=== PATIENT | male | born 2000 | race Caucasian/White ===

== ENCOUNTER 2023-09-23 13:35 | Emergency (ER) | payer SELFPAY ==
[~2023-09-23] VITALS: Ht 177.8 cm; Wt 72.6 kg
[2023-09-23 13:35] VITALS: BP 127/59; PULSE 115; RESP 18; TEMP 98.2; O2SAT 95
[2023-09-23 14:27] LABS: +ADD MANUAL DIFF(NO CHRG) NO; BASOPHIL % 0.4 % (0.0-0.2); EOSINOPHIL # 0.6 10^3/uL (0.0-0.2); EOSINOPHIL % 5.8 % (0.0-5.0); HEMATOCRIT(ML) 45.5 % (37.0-53.0); HEMOGLOBIN 15.7 g/dL (13.9-16.3); LYMPHOCYTES % 10.5 % (24.0-44.0); MEAN CORP HGB 30.5 pg (26-34); MEAN CORP HGB CONCENTRATION 34.5 g/dL (33-36.5); MEAN CORP VOLUME 88.3 fL (78-100); MONOCYTES # 0.7 10^3/uL (0.3-0.8); MONOCYTES % 6.6 % (5.0-12.0); NEUTROPHILS % 76.4 % (41.0-85.0); PLATELET COUNT 241 10^3/uL (150-400); RED BLOOD CELL 5.15 10^6/uL (4.50-5.90); RED CELL DISTRIBUTION WIDTH 12.6 % (11.5-14.5); WHITE BLOOD CELL 10.4 10^3/uL (4.5-11.0)
[2023-09-23 14:47] LABS: ANION GAP 13.1; CARBON DIOXIDE 25.1 mmol/L (20.0-32); CREATININE SERUM 1.12 mg/dL (0.59-1.40); GLUCOSE 93 mg/dL (74-106); POTASSIUM 3.2 mmol/L (3.6-5.2); SODIUM 141 mmol/L (132-145)
[2023-09-23 14:48] LABS: ALANINE AMINOTRANSFERASE(ML) 54 U/L (12-78); ALBUMIN(ML) 3.8 g/dL (3.4-5.0); ALBUMIN/GLOBULIN RATIO 1.225; ALKALINE PHOSPHATASE 55 U/L (50-136); ASPARTATE AMINO TRANSFERASE 26 U/L (0-35); CALCIUM 8.5 mg/dL (8.4-10.5); EST GFR, NON-AA 82.8 (>/=60)
[2023-09-23 14:49] LABS: TROPONIN I HIGH SENSITIVITY < 4 ng/L (0-75)
[2023-09-23 15:07] VITALS: BP 105/58; PULSE 108; RESP 18; O2SAT 100
== END 2023-09-23 15:37 | disposition home or self-care (01) ==
LOC: EDBD 13:35 → ER 13:35
DX: R00.2 Palpitations (principal); E86.0 Dehydration; R00.0 Tachycardia, unspecified
CPT/HCPCS: 36415; 71045; 80053; 84484; 85025; 85379; 93005; 99285